=== PATIENT | male | born 1950 | race African-American/Black ===

== ENCOUNTER 2016-04-05 14:30 | Emergency (ER) | payer MEDICARE, OTHER ==
[~2016-04-05] VITALS: Ht 162.6 cm; Wt 100.0 kg
[~2016-04-05 14:30] MED LIST: ALBU1AER INH; AMOX500T PO; FLUT1SPR9; HYDR-2768 PO; HYDR-3580 PO
[2016-04-05 14:32] VITALS: BP 141/67; PULSE 94; RESP 12; TEMP 98; O2SAT 95
[2016-04-05] MEDS ORDERED: CEPH-460 PO (16:44)
--- NOTE | 2016-04-05 16:45 | PD ---
HPI Chief Complaint: Skin Problem Time Seen by Provider: 16:25 Travel History International Travel<30 days: No Contact w/Intl Traveler<30days: No Traveled to known affect area: No History of Present Illness HPI Patient is a 65-year-old male who presents emergency for evaluation of a possible infection to his right hand. Patient states that he has chronic calluses to the volar aspect of his hands secondary to a fall 10 years ago. 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 He states that approximately one week ago he noted drainage from the callus. He denies any fever, chills, nausea, vomiting, redness, swelling. PFSH Past Medical History Arthritis: No Autoimmune Disease: No Blood Disorders: No Cancer: No Chemotherapy: No Cerebrovascular Accident: No Diminished Hearing: No Glaucoma: No Hypertension: Yes Psychiatric: No Immunizations Current: Yes Seizures: No Thyroid Disease: No PNEUMOCCOCAL Vaccine (Year): 2 Past Surgical History Abdominal Surgery: Yes (HERNIA REPAIR) AICD: No Genitourinary Surgery: No Pacemaker: No Social History Alcohol Use: No Tobacco Use: No Substance Use: No Allergies-Medications (Allergen,Severity, Reaction): Coded Allergies: No Known Allergies (Verified , 04/05/16) Reported Meds & Prescriptions Reported Meds & Active Scripts Active Review of Systems Except as stated in HPI: all other systems reviewed are Neg Skin: Positive Dryness, Positive Lesions Physical Exam Narrative GENERAL: Well-nourished, well-developed patient. SKIN: Warm and dry. Chronic-appearing calluses noted to the bilateral palms, the right has significantly thickened skin, no erythema, no fluctuance or induration noted. Nontender to palpation. HEAD: Normocephalic. EYES: No scleral icterus. No injection or drainage. NECK: Supple, trachea midline. No JVD or lymphadenopathy. CARDIOVASCULAR: Regular rate and rhythm without murmurs, gallops, or rubs. RESPIRATORY: Breath sounds equal bilaterally. No accessory muscle use. GASTROINTESTINAL: Abdomen soft, non-tender, nondistended. MUSCULOSKELETAL: No cyanosis, or edema. 5/5 muscle strength in bilateral upper extremities, positive radial pulse, brisk capillary refill. BACK: Nontender without obvious deformity. No CVA tenderness. Data Data Last Documented VS Vital Signs Date Time Temp Pulse Resp B/P Pulse Ox O2 Delivery O2 Flow Rate FiO2 04/05/16 14:32 98.0 94 12 141/67 95 Room Air MDM Medical Decision Making Medical Screen Exam Complete: Yes Emergency Medical Condition: Yes Interpretation(s) Vital Signs Date Time Temp Pulse Resp B/P Pulse Ox O2 Delivery O2 Flow Rate FiO2 04/05/16 14:32 98.0 94 12 141/67 95 Room Air Differential Diagnosis Cellulitis versus abscess versus eczema versus calluses versus other Narrative Course Patient is a 65-year-old male who presented a 12 resolution of possible infection to his palm of his right hand. Physical exam revealed thickened calluses with cracked fissures over the mid palm, there is no sign of infection at this time. Patient did express fluid. His vital signs are stable, is afebrile. Patient was encouraged to keep hands well-lubricated, will be given prophylactic antibiotic. Encouraged follow-up with his primary [facility]. He is encouraged to return to emergency department for any new or worsening symptoms. Patient verbalized understanding of these instructions. Patient is stable for discharge. Diagnosis Primary Impression: Callus Referrals: Primary Care Physician Patient Instructions: General Instructions Additional Instructions: Follow-up with your primary doctor Keep hands well-lubricated to avoid cracking Take medications as directed Return to emergency department for any new or worsening symptoms Med/Other Pt SpecificInfo: Prescription(s) given Scripts Cephalexin (Keflex)500 Mg Twm067 Mg PO Q8H 7 Days Ref 0 Prov:Diamond Suárez 04/05/16 Disposition: 01 DISCHARGE HOME Condition: Stable Diamond Suárez Apr 05, 2016 16:44
== END 2016-04-05 17:02 | disposition home or self-care (01) ==
LOC: NEPB 14:30
DX: L84 Corns and callosities (principal)
CPT/HCPCS: 99283